=== PATIENT | male | born 1935 | race Caucasian/White ===

== ENCOUNTER 2018-06-19 07:35 | Inpatient (IN) | payer MEDICARE ==
[2018-06-19] VITALS (9 sets, daily range): BP systolic 111–157; BP diastolic 60–80
[~2018-06-19] VITALS: Ht 175.3 cm; Wt 59.0 kg
[~2018-06-19 07:35] MED LIST: ALAVERT10 MG OR; ALEVE220 M2 PO; ALEVE220 MG; AMLODIPINE2.5 MG PO; ASA LO-DOSE81 MG OR; ASPIRIN LOW DOS81 M1 PO; BACTRIM DS1 TAB PO; CIPROFLOXACIN250 MG PO; CLARITIN10 M2 PO; DICYCLOMINE10 MG OR; FISH OIL1000 MG OR; FLEXERIL PO; FLUARIX QUADRIV1 INJ IM; FOLIC ACID800 MCG OR; GLYBURID MCR1.5 MG PO; HAIR/SKIN/ OR; HALFPRIN162 MG OR; KENALOG-4040 MG/ML IC; KENALOG-4040 MG/ML PO; LISINOP/HCTZ1 TA1 OR; LISINOP/HCTZ1 TA1 PO; LYRICA75 MG OR; MAREPA1000 MG OR; MEDDOSEPAK PO; MELATONIN3 MG OR; METFORMIN500 M1 OR; METFORMIN500 M1 PO; MOBIC7.5 M1 PO; MULTIVITAMIN OR; NAPROSYN500 MG PO; NEURONTIN300 MG PO; NORVASC10 MG OR; PLAVIX75 MG OR; PNEUMOVAX 23 IM; PRAVASTATIN SOD40 MG PO; PRILOSEC10 MG OR; PRILOSEC20 MG OR; PRINZIDE/ZESTOR1 TAB OR; PROCARDIA XL90 MG PO; TENORMIN25 M1 PO; TRAMADOL HCL50 MG PO; ULTRAM50 M1 PO; ULTRAM50 MG PO; ZOSTAVAX IM; [UNRECOGNIZED DRUG - OTHER]
--- NOTE | 2018-06-19 07:35 | NUR ---
TO ROOM 0 VIA STRETCHER BY EMS. ALERT. COOPERATIVE. REPORTS STARTED [facility] LAST NIGHT, WOKE DIZZY THIS MORNING. FELL IN KITCHEN. HERE FOR [facility]
[2018-06-19 08:03] LABS: HEMATOCRIT 40.5 % (39.0-50.0); HEMOGLOBIN 14.3 g/dl (14.0-18.0); IMMATURE GRANULOCYTES 0.3 % (0.0-5.0); MEAN CELL VOLUME 89.6 fL CALC (80.0-100.0); MEAN CORPUSCULAR HGB 31.6 pG CALC (26.0-32.0); MEAN CORPUSCULAR HGB CONC 35.3 g/L CALC (32.0-36.0); NEUT# 4.69 thou/uL (1.82-7.42); RED BLOOD COUNT 4.52 mill/uL (4.70-6.10)
--- NOTE | 2018-06-19 08:20 | NUR ---
HEART RATE REMAINS 130'S... AFIB RVR. CARDIZEM GIVEN IVP AT THIS TIME
[2018-06-19 08:42] LABS: ALBUMIN 4.2 g/dL (3.2-5.0); BILIRUBIN, TOTAL 0.7 mg/dL (0.0-1.4); CREATININE 1.5 mg/dL (0.7-1.3); POTASSIUM 3.9 mmol/l (3.5-5.1); TOTAL PROTEIN 6.7 g/dL (6.3-8.2)
--- NOTE | 2018-06-19 09:00 | NUR ---
BEDRESTING. LIGHTS OUT
--- NOTE | 2018-06-19 09:23 | NUR ---
STILL UNABLE TO PROVIDE A URINE SPECIMEN. CARDIZEM DRIP STARTED.
[2018-06-19] MEDS ORDERED: METFORMIN500 MG PO (09:38)
[2018-06-19] MEDS ORDERED: GABAPENTIN100 MG PO (09:38)
[2018-06-19] MEDS ORDERED: AMLODIPINE5 MG PO (09:39)
[2018-06-19] MEDS ORDERED: SIMVASTATIN20 MG PO (09:40)
[2018-06-19] MEDS ORDERED: OMEPRAZOLE10 MG PO (09:41)
[2018-06-19] MEDS ORDERED: LISINOPRIL20 MG PO (09:42)
[2018-06-19] MEDS ORDERED: HYDROCHLOROTH12.5 MG PO (09:44)
[2018-06-19] MEDS ORDERED: BAYER CHEWABLE81 MG PO (09:45)
[2018-06-19] MEDS ORDERED: TAMSULOSIN0.4 MG PO (09:45)
--- NOTE | 2018-06-19 09:59 | NUR ---
2CM U-SHAPED SKIN TEAR RIGHT UPPER FOREARM. AREA CLEANED WITH SHURCLENS-TOLERATED WELL
--- NOTE | 2018-06-19 10:00 | NUR ---
AWAITING OPEN ICU BED. SAUNDRA REMAIN IN ER FOR NOW
--- NOTE | 2018-06-19 10:09 | NUR ---
MD GRACIA OF SKIN TEAR OF RIGHT ARM- DERMABOND APPLIED-TOLERATED WELL
--- NOTE | 2018-06-19 10:59 | NUR ---
bedresting. no distress at this time. awaiting urine specimen
--- NOTE | 2018-06-19 11:00 | NUR ---
BEDRESTING. STILL NO URINE SPECIMEN
--- NOTE | 2018-06-19 11:55 | NUR ---
NO DISTRESS. CARDIZEM INFUSING SA RX-TOLERATING WELL
--- NOTE | 2018-06-19 12:18 | NUR ---
REPORT CALLED TO ALEXUS IN ICU. AWAITING FOR ROOM TO BE CLEANED IN ICU
[2018-06-19 12:47] LABS: URINE BILIRUBIN - DIPSTICK NEGATIVE (NEGATIVE); URINE BLOOD DIPSTICK NEGATIVE (NEGATIVE); URINE COLOR YELLOW; URINE GLUCOSE - DIPSTICK NEGATIVE (NEGATIVE); URINE KETONE NEGATIVE (NEGATIVE); URINE LEUK ESTERASE TRACE (NEGATIVE); URINE NITRITE - DIPSTICK NEGATIVE (Negative); URINE PROTEIN - DIPSTICK NEGATIVE (NEG-TRACE); URINE SPECIFIC GRAVITY 1.015; URINE UROBILINOGEN - DIPSTICK 0.2 E.U./dL (0.2)
--- NOTE | 2018-06-19 13:00 | NUR ---
states was good lunch. awaiting admission
--- NOTE | 2018-06-19 13:35 | NUR ---
to icu via stretcher
--- NOTE | 2018-06-19 17:00 | NUR ---
PT SEEN IN ROOM BY DR MCFARLAND. CARDIZEM DRIP NOW DOWN TO 5 MG/HR PER NSR. NO DISTRESS NOTED.
--- NOTE | 2018-06-19 18:55 | NUR ---
REPORT FROM TABITHA ROCHE. ASSUMED PT. CARE.
--- NOTE | 2018-06-19 19:35 | NUR ---
PT. FOUND AWAKE, ALERT, ORIENTED X 3. SKIN WARM AND DRY. AFEBRILE AT 99.2. PT. ASSISTED TO BATHROOM AT THIS TIME. TOLERATED WELL. ASSISTED BACK TO BED WITH STEADY GAIT ASSISTED WITH CANE. CARDIZEM DRIP INFUSING AT 5 MG/HR. RESPS EVEN AND UNLABORED. VSS. BOWEL SOUNDS PRESENT. DENIES COMPLAINTS OF PAIN. SMITH. EMILEE. NO EDEMA NOTED. DISTIL PULSES INTACT. CALL LIGHT REMAINS WITHIN REACH. WILL CONTINUE TO ASSESS.
--- NOTE | 2018-06-19 20:40 | NUR ---
ACCUCHECK NOW 166. WILL MEDICATE ORDERED. HR REMAINS STABLE. CARDIZEM DECREASED TO 2.5 MG/HR. DENIES COMPLAINTS OF PAIN OR NEED AT THIS TIME. CALL LIGHT REMAINS WITHIN REACH. WILL CONTINUE TO ASSESS.
--- NOTE | 2018-06-19 22:30 | NUR ---
CARDIZEM DRIP DISCONTINUED AT THIS TIME. BP/HR STABLE. REMAINS SINUS IN THE LOW 60'S AT THIS TIME. WILL CONTINUE TO MONITOR.
[2018-06-20] VITALS (11 sets, daily range): BP systolic 117–181; BP diastolic 58–81
--- NOTE | 2018-06-20 | NUR ---
PT. ASSISTED TO RESTROOM AT THIS TIME. AMBULATORY WITH STEADY GAIT UTILIZING CANE. DENIES COMPLAINTS OF PAIN OR NEED. REMAINS SINUS ON THE MONITOR IN THE 50-60'S. NO DISTRESS.
--- NOTE | 2018-06-20 00:35 | NUR ---
LAB AT BEDSIDE TO DRAW PATIENT AT THIS TIME.
--- NOTE | 2018-06-20 01:27 | NUR ---
PT. RESTING IN BED WITH EYES CLOSED. MIDNIGHT TROP IS NEGATIVE. PT. CONTINUES IN SINUS ELVIN IN THE MID/UPPER 50'S. CALL IGHT REMAINS WITHIN REACH. WILL CONTINUE TO ASSESS.
--- NOTE | 2018-06-20 03:30 | NUR ---
PT. RESTING IN BED WITH EYES CLOSED. RESPS EVEN AND UNLABORED. PT. REMAINS SINUS ELVIN IN NO DISTRESS. BP STABLE. CALL LIGHT REMAINS WITHIN REACH. WILL CONTINUE TO MONITOR.
--- NOTE | 2018-06-20 05:20 | NUR ---
LAB AT BEDSIDE AT THIS TIME. PT. EASILY AROUSABLE TO LIGHT VERBAL STIMULI. PT. VOICES NO COMPLAINTS OR NEEDS. RESPS REMAIN EVEN AND UNLABORED. CALL LIGHT REMAINS WITHIN REACH.
--- NOTE | 2018-06-20 05:33 | NUR ---
PT. C/O MODERATE PAIN TO RT. LEG/THIGH. NEW ORDERS RECEIVED. WILL MEDICATE ORDERED. PT. REMAINS STABLE AND VOICES NO OTHER COMPLAINTS OR NEEDS. CALL LIGHT REMAINS WITHIN REACH.
--- NOTE | 2018-06-20 06:15 | NUR ---
PT. REMAINS EASILY AROUSABLE TO LIGHT VERBAL STIMULI. RESPS REMAIN EVEN AND UNLABORED. DENIES OTHER COMPLAINTS OR NEEDS. MEDICATED ORDERED. CALL LIGHT REMAINS WITHIN REACH. WILL CONTINUE TO MONITOR.
[2018-06-20 06:29] LABS: HEMATOCRIT 40.3 % (39.0-50.0); HEMOGLOBIN 13.9 g/dl (14.0-18.0); IMMATURE GRANULOCYTES 0.3 % (0.0-5.0); MEAN CORPUSCULAR HGB CONC 34.5 g/L CALC (32.0-36.0); NEUT# 3.64 thou/uL (1.82-7.42); RED BLOOD COUNT 4.48 mill/uL (4.70-6.10); RED CELL DISTRI WIDTH 12.8 % (11.5-15.5)
[2018-06-20 06:40] LABS: ALBUMIN 3.9 g/dL (3.2-5.0); ALKALINE PHOSPHATASE 61 u/l (38-126); ANION GAP 13 (6-22 (CALC)); BILIRUBIN, TOTAL 0.7 mg/dL (0.0-1.4); BUN 34 mg/dL (8-23); BUN/CREATININE RATIO 30 (12-20 (CALC)); CARBON DIOXIDE 29 mmol/l (22-30); CHLORIDE 103 mmol/l (95-108); CREATININE 1.1 mg/dL (0.7-1.3); GFR > 60 ML/MIN (>=60 (CALC)); GFR FOR AFR.AMER. > 60 ML/MIN (>=60 (CALC)); MAGNESIUM 1.7 mg/dL (1.6-2.3); POTASSIUM 4.3 mmol/l (3.5-5.1); SODIUM 140 mmol/l (137-146); TOTAL PROTEIN 6.3 g/dL (6.3-8.2)
[2018-06-20 06:45] LABS: SGOT/AST 47 u/l (19-48)
--- NOTE | 2018-06-20 07:54 | NUR ---
PT SEEN WITHOUT COMPLAINT, SITTING UP AT SIDE OF BED. HEART RHYTHM REMAINS SINUS RHYTHM, NO ECTOPY. RIGHT ELBOW DERMABONDED ABRASION STARR. PT WITH BRUISE NOTED TO RIGHT BACK PER FALL YESTERDAY.
--- NOTE | 2018-06-20 12:37 | NUR ---
PT AT REST IN THE CHAIR NEXT TO BED, HR REMAINS SR AT 60. NO COMPLAINTS, NO DISTRESS NOTED.
--- NOTE | 2018-06-20 15:26 | NUR ---
REPORT RECEIVED FROM KALEY IN ICU, PT ARRIVED ON UNIT VIA W/C AND TRANSFERRED TO BED. ALERT AND ORIENTED X 3, ORIENTED TO ROOM AND CALL TONG, DENIY HAVING PAIN AT THIS TIME, TELE MONITOR PLACED, CALL TONG IN REACH.
--- NOTE | 2018-06-20 17:00 | NUR ---
SMALL SKIN TEAR TO RIGHT WITH LYDIA WALLACE REMOVED, TEAR CLEANED WITH 0.9NS, ADAPTIC APPLIED, COVERED WITH TELFA AND SECURED WITH MESH.
--- NOTE | 2018-06-20 19:30 | NUR ---
REPORT FROM RANDY. PT SITTING UP IN BED. ALERT AND ORIENTED. PT DENIES ANY PAIN OR DISCOMFORT AT THIS TIME. RESPIRATIONS EVEN AND UNLABORED. IV APPEARS HEALTHY. VALUE ADVISOR IN PLACE. DISCUSSED POC. PT VERBALIZED UNDERSTANDING. CALL LIGHT WITHIN REACH. WILL CONTINUE TO MONITOR.
--- NOTE | 2018-06-21 00:36 | NUR ---
PT RESTING IN BED WITH EYES CLOSED. EASILY AROUSED. PT DENIES ANY PAIN OR DISCOMFORT. RESPIRATIONS EVEN AND UNLABORED. CALL LIGHT WITHIN REACH. WILL CONTINUE TO MONITOR.
--- NOTE | 2018-06-21 04:52 | NUR ---
PT RESTING IN BED WITH EYES CLOSED. EASILY AROUSED. VS STABLE. DENIES ANY PAIN OR DIZZINESS. CALL LIGHT WITHIN REACH. WILL CONTINUE TO MONITOR.
[2018-06-21 05:04] VITALS: BP 198/84
[2018-06-21 05:47] LABS: ANION GAP 16 (6-22 (CALC)); BUN 31 mg/dL (8-23); BUN/CREATININE RATIO 32 (12-20 (CALC)); CARBON DIOXIDE 25 mmol/l (22-30); CHLORIDE 103 mmol/l (95-108); GFR > 60 ML/MIN (>=60 (CALC)); GFR FOR AFR.AMER. > 60 ML/MIN (>=60 (CALC)); POTASSIUM 4.1 mmol/l (3.5-5.1); SODIUM 140 mmol/l (137-146)
--- NOTE | 2018-06-21 06:00 | NUR ---
PT NOTED TO HAVE ELEVATED BP 170/79. MEDICATED FOR PAIN @ 0505 AND BP RECHECKED AT THIS TIME 198/[address] CARDOZA NOTIFIED AND NEW ORDER RECIEVED FOR PRN CLONIDINE. WILL ADMINISTER WHEN PHARMACY PROFILES MED.
[2018-06-21 06:44] VITALS: BP 175/94
[2018-06-21 08:13] VITALS: BP 111/71
--- NOTE | 2018-06-21 08:13 | NUR ---
PT SITTING UP ON SIDE OF BED. ASSESSMENT COMPLETED. VSS. MORNING MEDS GIVEN AT THIS TIME. NO C/O AT THIS TIME. TELE MONITOR IN PLACE. WILL CONTINUE TO MONITOR. CALL LIGHT IN REACH.
[2018-06-21] MEDS ORDERED: LOPRESSOR25 MG PO (10:09)
[2018-06-21] MEDS ORDERED: ELIQUIS2.5 MG PO (10:09)
[2018-06-21] MEDS ORDERED: LISINOPRIL20 M1 PO (10:10)
--- NOTE | 2018-06-21 10:50 | NUR ---
DR CARDOZA AND BREANNA KATZ AT BEDSIDE. POC DISCUSSED WITH PT. D/C HOME TODAY. PT VERBALIZES UNDERSTANDING. CALLL LIGHT IN REACH.
[2018-06-21 11:18] VITALS: BP 124/65
--- NOTE | 2018-06-21 12:20 | NUR ---
Discharge instructions given. Patient verbalizes understanding of same. Discharged in stable condition via Wheelchair to Home with friend. All belongings sent with pt.
== END 2018-06-21 12:20 | disposition home or self-care (01) | DRG 309 ==
LOC: ED 07:35 → ED-I 09:20 → ED 09:53 → ED-I 09:54 → ICU 13:30 → MS2 06-20 15:10
PROVIDERS: Emergency Medicine; Internal Medicine; ADMIT Internal Medicine Nephrology; ATTEND Internal Medicine Nephrology
PROC: 0HQDXZZ Repair Right Lower Arm Skin, External Approach (ICD-10-PCS; principal; 2018-06-19)
DX: I48.91 Unspecified atrial fibrillation (principal); N17.9 Acute kidney failure, unspecified; T44.6X5A Adverse effect of alpha-adrenoreceptor antagonists, initial encounter; S51.011A Laceration without foreign body of right elbow, initial encounter; I10 Essential (primary) hypertension; E11.40 Type 2 diabetes mellitus with diabetic neuropathy, unspecified; E78.5 Hyperlipidemia, unspecified; N40.0 Benign prostatic hyperplasia without lower urinary tract symptoms; M19.90 Unspecified osteoarthritis, unspecified site; K21.9 Gastro-esophageal reflux disease without esophagitis; W18.30XA Fall on same level, unspecified, initial encounter; Y92.003 Bedroom of unspecified non-institutional (private) residence as the place of occurrence of the external cause; Z79.84 Long term (current) use of oral hypoglycemic drugs

== ENCOUNTER 2018-07-11 03:18 | Observation (INO) | payer MEDICARE ==
[~2018-07-11] VITALS: Ht 175.3 cm; Wt 57.0 kg
[2018-07-11] VITALS (12 sets, daily range): BP systolic 109–132; BP diastolic 56–74
[~2018-07-11 03:18] MED LIST changes: +AMLODIPINE5 MG PO; +BAYER CHEWABLE81 MG PO; +ELIQUIS2.5 MG PO; +GABAPENTIN100 MG PO; +HYDROCHLOROTH12.5 MG PO; +LISINOPRIL20 M1 PO; +LISINOPRIL20 MG PO; +LOPRESSOR25 MG PO; +METFORMIN500 MG PO; +OMEPRAZOLE10 MG PO; +SIMVASTATIN20 MG PO; +TAMSULOSIN0.4 MG PO
[2018-07-11 03:52] LABS: HEMATOCRIT 38.4 % (39.0-50.0); HEMOGLOBIN 13.3 g/dl (14.0-18.0); IMMATURE GRANULOCYTES 0.2 % (0.0-5.0); MEAN CELL VOLUME 90.4 fL CALC (80.0-100.0); MEAN CORPUSCULAR HGB 31.3 pG CALC (26.0-32.0); MEAN CORPUSCULAR HGB CONC 34.6 g/L CALC (32.0-36.0); NEUT# 3.71 thou/uL (1.82-7.42); RED BLOOD COUNT 4.25 mill/uL (4.70-6.10); RED CELL DISTRI WIDTH 12.8 % (11.5-15.5)
[2018-07-11 04:29] LABS: ALBUMIN 4.4 g/dL (3.2-5.0); ALKALINE PHOSPHATASE 77 u/l (38-126); ANION GAP 15 (6-22 (CALC)); BILIRUBIN, TOTAL 0.7 mg/dL (0.0-1.4); BUN 28 mg/dL (8-23); BUN/CREATININE RATIO 18 (12-20 (CALC)); CARBON DIOXIDE 29 mmol/l (22-30); CHLORIDE 103 mmol/l (95-108); CREATININE 1.5 mg/dL (0.7-1.3); GFR 45 ML/MIN (>=60 (CALC)); GFR FOR AFR.AMER. 54 ML/MIN (>=60 (CALC)); POTASSIUM 3.5 mmol/l (3.5-5.1); SGOT/AST 22 u/l (19-48); SODIUM 144 mmol/l (137-146); TOTAL PROTEIN 7.5 g/dL (6.3-8.2)
[2018-07-11 04:40] LABS: ACT PARTIAL THROMBO TIME 45.3 SECONDS (20.0-32.5); INTERNATIONAL NORMALIZED RATIO 1.3 RATIO (0.7-1.3)
[2018-07-11 04:42] LABS: MYOGLOBIN 79 ng/mL (0 - 121)
[2018-07-11] MEDS ORDERED: PRADAXA150 MG PO (05:41)
[2018-07-11] MEDS ORDERED: HYDROCHLOROTH12.5 M1 PO (05:43)
[2018-07-11] MEDS ORDERED: ZESTRIL10 M1 PO (05:51)
[2018-07-11 05:57] LABS: CHOLESTEROL HDL RATIO 3.2 (<4.4 (CALC))
[2018-07-11 06:03] LABS: URINE BILIRUBIN - DIPSTICK NEGATIVE (NEGATIVE); URINE BLOOD DIPSTICK SMALL (NEGATIVE); URINE COLOR YELLOW; URINE GLUCOSE - DIPSTICK NEGATIVE (NEGATIVE); URINE KETONE NEGATIVE (NEGATIVE); URINE LEUK ESTERASE NEGATIVE (NEGATIVE); URINE NITRITE - DIPSTICK NEGATIVE (Negative); URINE PH 6.5 (4.5-8.0); URINE PROTEIN - DIPSTICK NEGATIVE (NEG-TRACE); URINE UROBILINOGEN - DIPSTICK 0.2 E.U./dL (0.2)
[2018-07-11 06:37] LABS: URINE RBC 0-2 RBC/hpf (0-5); URINE WBC 0-2 WBC/hpf (0-5)
[2018-07-12 04:50] VITALS: BP 157/72
[2018-07-12 04:55] VITALS: BP 161/73
[2018-07-12 05:00] VITALS: BP 130/66
[2018-07-12 05:23] LABS: HEMATOCRIT 33.2 % (39.0-50.0); HEMOGLOBIN 11.4 g/dl (14.0-18.0); IMMATURE GRANULOCYTES 0.4 % (0.0-5.0); MEAN CORPUSCULAR HGB 31.2 pG CALC (26.0-32.0); MEAN CORPUSCULAR HGB CONC 34.3 g/L CALC (32.0-36.0); NEUT# 2.77 thou/uL (1.82-7.42); RED BLOOD COUNT 3.65 mill/uL (4.70-6.10); RED CELL DISTRI WIDTH 12.5 % (11.5-15.5)
[2018-07-12 05:56] LABS: ANION GAP 13 (6-22 (CALC)); BUN 23 mg/dL (8-23); BUN/CREATININE RATIO 21 (12-20 (CALC)); CARBON DIOXIDE 26 mmol/l (22-30); CHLORIDE 105 mmol/l (95-108); CREATININE 1.1 mg/dL (0.7-1.3); GFR > 60 ML/MIN (>=60 (CALC)); GFR FOR AFR.AMER. > 60 ML/MIN (>=60 (CALC)); MAGNESIUM 1.5 mg/dL (1.6-2.3); POTASSIUM 3.6 mmol/l (3.5-5.1); SODIUM 140 mmol/l (137-146)
[2018-07-12 07:35] VITALS: BP 148/63
[2018-07-12 11:12] VITALS: BP 144/73
[2018-07-12] MEDS ORDERED: LOPRESSOR25 MG PO (12:23)
== END 2018-07-12 13:48 | disposition home or self-care (01) ==
LOC: ED 03:18 → ED-I 05:11 → ED 05:35 → MS2 05:36
PROVIDERS: Emergency Medicine; Nurse Practitioner Family; ADMIT Internal Medicine; ATTEND Internal Medicine
DX: R07.2 Precordial pain (principal); I12.9 Hypertensive chronic kidney disease with stage 1 through stage 4 chronic kidney disease, or unspecified chronic kidney disease; E11.22 Type 2 diabetes mellitus with diabetic chronic kidney disease; N18.3 Chronic kidney disease, stage 3 (moderate); I16.0 Hypertensive urgency; E11.40 Type 2 diabetes mellitus with diabetic neuropathy, unspecified; E78.5 Hyperlipidemia, unspecified; I48.0 Paroxysmal atrial fibrillation; M19.90 Unspecified osteoarthritis, unspecified site; N40.0 Benign prostatic hyperplasia without lower urinary tract symptoms; R63.6 Underweight; Z68.1 Body mass index [BMI] 19.9 or less, adult; E86.0 Dehydration; Z79.84 Long term (current) use of oral hypoglycemic drugs; Z79.02 Long term (current) use of antithrombotics/antiplatelets

== ENCOUNTER 2018-07-13 07:10 | Emergency (ER) | payer MEDICARE ==
[~2018-07-13] VITALS: Ht 175.3 cm; Wt 70.0 kg
[~2018-07-13 07:10] MED LIST changes: +HYDROCHLOROTH12.5 M1 PO; +PRADAXA150 MG PO; +ZESTRIL10 M1 PO
[2018-07-13 08:02] VITALS: BP 156/77
== END 2018-07-13 08:09 | disposition home or self-care (01) ==
LOC: ED 07:10
DX: Z45.2 Encounter for adjustment and management of vascular access device (principal)

== ENCOUNTER → 2018-08-19 | Outpatient (REF) | payer MEDICARE | END | disposition home or self-care (01) | LOC: STRESS 08:42 → NUCMED 09:00 | PROVIDERS: ATTEND Internal Medicine | DX: I48.0 Paroxysmal atrial fibrillation (principal); I20.9 Angina pectoris, unspecified | CPT/HCPCS: A9502; J2785 ==

== ENCOUNTER 2019-12-30 09:12 | Day surgery (SDC) | payer MEDICARE ==
[~2019-12-30] VITALS: Ht 172.7 cm; Wt 63.5 kg
[~2019-12-30 09:12] MED LIST changes: +DULOXETINE HCL60 MG PO; +GLUCOPHAGE PO; +HYDROCHLOROT25 MG PO; +METOPROL TAR25 M1 PO; +OMEPRAZOLE DR40 MG PO; +XARELTO10 MG PO
[2019-12-30 11:52] VITALS: BP 169/88
== END 2019-12-30 11:45 | disposition home or self-care (01) ==
LOC: ENDO 09:12 → ORM 09:15 → ENDO 09:15
PROVIDERS: ATTEND Surgery
PROC: 0DB48ZX Excision of Esophagogastric Junction, Via Natural or Artificial Opening Endoscopic, Diagnostic (ICD-10-PCS; principal; 2019-12-30)
PROC: 0DBM8ZX Excision of Descending Colon, Via Natural or Artificial Opening Endoscopic, Diagnostic (ICD-10-PCS; 2019-12-30)
DX: K57.31 Diverticulosis of large intestine without perforation or abscess with bleeding (principal); D12.4 Benign neoplasm of descending colon; K64.8 Other hemorrhoids; K44.9 Diaphragmatic hernia without obstruction or gangrene; K22.9 Disease of esophagus, unspecified; D64.9 Anemia, unspecified; I10 Essential (primary) hypertension; Z79.01 Long term (current) use of anticoagulants; Z11.59 Encounter for screening for other viral diseases

== ENCOUNTER 2020-03-12 08:25 | Emergency (ER) | payer MEDICARE ==
[~2020-03-12] VITALS: Ht 172.7 cm; Wt 72.7 kg
[2020-03-12 09:00] LABS: HEMATOCRIT 27.4 % (39.0-50.0); IMMATURE GRANULOCYTES 0.2 % (0.0-5.0); MEAN CORPUSCULAR HGB 20.9 pG CALC (26.0-32.0); MEAN CORPUSCULAR HGB CONC 29.2 g/dL CAL (32.0-36.0); NEUT# 3.11 thou/uL (1.82-7.42); RED BLOOD COUNT 3.83 mill/uL (4.70-6.10); RED CELL DISTRI WIDTH 16.3 % (11.5-15.5)
[2020-03-12 09:06] LABS: MEAN CELL VOLUME 71.5 fL CALC (80.0-100.0)
--- NOTE | 2020-03-12 09:10 | NUR ---
RECD CONSULT FOR MED REC, PT HAS NOT FILLED AN RX SINCE JUNE 2018... DOESN'T LOOK LIKE PT TAKES ANYTHING
[2020-03-12 09:13] LABS: URINE BILIRUBIN - DIPSTICK NEGATIVE (NEGATIVE); URINE BLOOD DIPSTICK TRACE-INTACT (NEGATIVE); URINE COLOR YELLOW; URINE GLUCOSE - DIPSTICK 500 mg/dL (NEGATIVE); URINE KETONE NEGATIVE (NEGATIVE); URINE LEUK ESTERASE NEGATIVE (NEGATIVE); URINE NITRITE - DIPSTICK NEGATIVE (Negative); URINE PH 7.5 (4.5-8.0); URINE PROTEIN - DIPSTICK TRACE mg/dL (NEG-TRACE); URINE SPECIFIC GRAVITY 1.015; URINE UROBILINOGEN - DIPSTICK 0.2 E.U./dL (0.2)
[2020-03-12 09:13] LABS: ALKALINE PHOSPHATASE 90 u/l (38-126); ANION GAP 13 (6-22 (CALC)); BILIRUBIN, TOTAL 0.3 mg/dL (0.0-1.4); BUN 22 mg/dL (8-23); BUN/CREATININE RATIO 19 (12-20 (CALC)); CARBON DIOXIDE 29 mmol/l (22-30); CHLORIDE 99 mmol/l (95-108); CREATININE 1.2 mg/dL (0.7-1.3); GFR 58 ML/MIN (>=60 (CALC)); GFR FOR AFR.AMER. > 60 ML/MIN (>=60 (CALC)); POTASSIUM 4.1 mmol/l (3.5-5.1); SGOT/AST 26 u/l (19-48); SODIUM 136 mmol/l (137-146); TOTAL PROTEIN 6.6 g/dL (6.3-8.2)
[2020-03-12] MEDS ORDERED: FEOSOL45 MG PO (09:39)
[2020-03-12 10:00] VITALS: BP 177/79
== END 2020-03-12 10:00 | disposition home or self-care (01) ==
LOC: ED 08:25
PROVIDERS: Emergency Medicine
DX: F41.9 Anxiety disorder, unspecified (principal); D64.9 Anemia, unspecified; K59.00 Constipation, unspecified; I10 Essential (primary) hypertension